=== PATIENT | male | born 1965 | race Caucasian/White ===

== ENCOUNTER 2018-08-23 01:49 | Emergency (ER) | payer MEDICAID ==
[2018-08-23 02:06] VITALS: RESP 18
[2018-08-23] MEDS ORDERED: Tdap Vaccine 0.5 ml Vial (10-64 yrs) IM ONE ×2 (04:17→04:36)
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
[2018-08-23 06:43] VITALS: BP 124/82; PULSE 93; TEMP 98.3; O2SAT 98
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
--- NOTE | 2018-08-23 12:49 | CT ---
Date of service: 08/23/2018 PROCEDURE: CT HEAD WITHOUT CONTRAST. HISTORY: ETOH. Facial/head COMPARISON: Injury. Correlation made with concurrent CT scan maxillofacial skeleton TECHNIQUE: Axial computed tomography images were obtained through the head/brain without intravenous contrast. Radiation dose: Total exam DLP = 745.37 mGy-cm. This CT exam was performed using one or more of the following dose reduction techniques: Automated exposure control, adjustment of the mA and/or kV according to patient size, and/or use of iterative reconstruction technique. FINDINGS: HEMORRHAGE: No acute parenchymal, subarachnoid or extra-axial hemorrhage. BRAIN: No evidence of large acute infarct. The no obvious parenchymal nor extra-axial masses or collections. VENTRICLES: Unremarkable. No hydrocephalus. CALVARIUM: Calvarium appears intact however there is wall thickening of the internal table of the skull base which exhibits a homogeneous appearance. Rule out fibrous dysplasia. PARANASAL SINUSES: There is absence of the frontal sinus. Additionally, marked wall thickening of the bustos of the maxillary antra. The sphenoid sinuses are also markedly hypoplastic and there is moderate hypoplasia of the ethmoid air complexes. All these findings are felt to be may be secondary to developmental and due to incomplete excavation however fibrous dysplasia not excluded. 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 Note made of calcifications along the anteromedial surface right globe. IMPRESSION: No acute intracranial hemorrhage The paranasal and mastoid air complexes are markedly hypoplastic with thickening and homogeneous appearance of the inner table of the skull base which include on the surrounding bony structures of the maxillary sinuses and temporal bones. Rule out fibrous dysplasia. 

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
== END 2018-08-23 06:49 | disposition home or self-care (01) ==
LOC: H.ER 01:49
DX: F10.10 Alcohol abuse, uncomplicated (principal); S00.83XA Contusion of other part of head, initial encounter; Y04.0XXA Assault by unarmed brawl or fight, initial encounter; Y92.89 Other specified places as the place of occurrence of the external cause